=== PATIENT | male | born 1950 | race Caucasian/White ===

== ENCOUNTER 2022-12-03 12:36 | Emergency (ER) | payer MEDICARE, BC, SELFPAY ==
[2022-12-03] VITALS (20 sets, daily range): BP systolic 120–156; BP diastolic 74–90; PULSE 57–82; RESP 15–31; TEMP 36.5; O2SAT 96–100; BMI 23.7
--- NOTE | 2022-12-03 12:39 | DI.RAD.S_ITS ---
PROCEDURE: XR CHEST 1V INDICATIONS: Possible stroke TECHNIQUE: One view of the chest was acquired. COMPARISON: None. FINDINGS: Surgical changes and devices: None. Lungs and pleura: Lungs are clear. No pleural effusions or pneumothorax. Mediastinum: Mediastinal contours appear normal. Heart size is normal. Bones and chest wall: No suspicious bony lesions. Overlying soft tissues appear unremarkable. IMPRESSION: Normal for age, source of current stroke symptoms is not seen. No sign of aspiration. Dictated by: Aron Ruiz M.D. on 12/03/2022 at 13:02 Approved by: Aron Ruiz M.D. on 12/03/2022 at 13:02
--- NOTE | 2022-12-03 12:40 | DI.CT.S_ITS ---
PROCEDURE: CT ANGIO HEAD AND NECK INDICATIONS: TIA workup,not TPA candidate TECHNIQUE: Pre-contrast 4.5 mm thick sections acquired from the foramen magnum to the vertex. After the administration of intravenous contrast, 1 mm thick sections acquired from the aortic arch through the [place]. Post-contrast 4.5 mm thick sections then re-acquired from the foramen magnum to the vertex. 3-dimensional zjgvzdg-ztckgpqus-yfhaonaijc (MIP) and/or volume rendering reformats were acquired of the central intracranial vasculature and neck separately. For radiation dose reduction, the following was used: automated exposure control, adjustment of mA and/or kV according to patient size. COMPARISON: None. FINDINGS: Image quality: Excellent. BRAIN: CSF spaces: Ventricles are normal in size and shape. Basal cisterns are patent. No extra-axial fluid collections. Brain: No midline shift. No intracranial bleeds or masses. Nicole-white matter interface appears intact. Skull and face: Calvarium and facial bones appear intact, without suspicious lesions. Orbits appear normal. Sinuses: Sinuses and mastoids are clear. HEAD CT ANGIOGRAPHY: Anterior circulation: Intracranial internal carotid arteries are normal in size and flow. The flow within the paired anterior cerebral arteries is normal and symmetric. The flow within the middle cerebral arteries is normal and symmetric. The anterior communicating artery is seen. No aneurysms are seen. Posterior circulation: Visualized portions of the vertebral arteries demonstrate normal caliber, and join to form a normal appearing basilar artery. Flow within the posterior cerebral arteries is normal and symmetric. No aneurysms are seen. NECK CT ANGIOGRAPHY: Carotid system: The great vessels demonstrate a conventional anatomy as they arise from the aortic arch. The origins of the common carotid arteries appear patent. The common carotid arteries demonstrate normal caliber and courses. The bifurcation regions are both widely patent. The internal carotid arteries demonstrate normal calibers and courses. Posterior circulation: The origins of the vertebral arteries both appear widely patent. The more superior extracranial portions of both vertebral arteries also demonstrate normal courses and calibers. They join to form a normal appearing basilar artery. Soft tissues: Visualized neck soft tissues demonstrate no suspicious abnormalities. Bones: No suspicious bony lesions. Visualized cervical spine appears normally aligned. IMPRESSION: Normal for age, no evidence of embolic disease or significant atherosclerotic stenosis. Source of current symptoms is not found. Any quantitative measurements of stenosis were performed using NASCET criteria. Dictated by: Aron Ruiz M.D. on 12/03/2022 at 13:38 Approved by: Arno Ruiz M.D. on 12/03/2022 at 13:42
[2022-12-03 12:57] LABS: Add Manual Diff / Slide Review NO; Basophils Absolute Auto 100 /uL (0-100); Eosinophils Absolute Auto 100 /uL (0-450); Eosinophils Percent Auto 1.6 % (2-4); Hematocrit 44.8 % (41-53); Hemoglobin 15.4 g/dL (13.5-17.5); Lymphocytes Absolute Auto 1400 /uL (1100-4500); Lymphocytes Percent Auto 26.8 % (25-40); Mean Corpuscular HGB Conc 34.4 % (30-36); Mean Corpuscular Hemoglobin 30.4 PG (26-34); Mean Corpuscular Volume 88.5 fL (80-100); Monocytes Absolute Auto 500 /uL (0-900); Monocytes Percent Auto 9.9 % (3-14); Neutrophils Absolute Auto 3200 /uL (1500-7000); Neutrophils Percent Auto 60.7 % (50-75); Platelet Count 123 X10^3/uL (150-400); Red Blood Cell Count 5.06 X10^6/uL (4.5-5.9); Red Cell Distribution Width 13.9 % (11.6-14.8); White Blood Cell Count 5.3 X10^3/uL (4.5-11.0)
[2022-12-03 13:03] LABS: Prothrombin Time 11.6 SECONDS (10.1-12.7)
[2022-12-03 13:05] LABS: PTT Partial Thromboplastin Tim 33 SECONDS (26-36)
[2022-12-03 13:06] LABS: Alanine Aminotransferase 22 IU/L (<50); Albumin 4.7 g/dL (3.5-5.0); Albumin Globulin Ratio 1.5 (1.0-2.8); Alkaline Phosphatase 61 U/L (38-126); Aspartate Aminotransferase 28 IU/L (17-59); BUN Creatinine Ratio 23.5 (6-22); Bilirubin Total 0.7 mg/dL (0.2-1.3); Blood Urea Nitrogen 20 mg/dL (9-20); Carbon Dioxide 26 mmol/L (22-32); Chloride 104 mmol/L (98-107); Creatine Kinase 116 U/L (55-170); Estimated Glomerular Filt Rate > 60 mL/min (>60); Globulin 3.2 g/dL (1.7-4.1); Glucose 94 mg/dL (80-110); HEMOLYSIS 24 (0-50); Magnesium 2.1 mg/dL (1.6-2.3); Potassium 4.2 mmol/L (3.4-5.1); Sodium 139 mmol/L (137-145); Total Protein 7.9 g/dL (6.3-8.2)
[2022-12-03 13:18] LABS: Troponin I < 0.012 ng/mL (0.01-0.034)
[2022-12-03 13:22] LABS: CKMB % Relative Index 1.2 % (1.5-5.0); Creatine Kinase MB 1.37 ng/mL (<2.37)
--- NOTE | 2022-12-03 15:38 | ED.NEUROSD ---
HPI - Neuro Symptoms/Deficit General Chief Complaint: Neuro Symptoms/Deficit Stated Complaint: sent by Stroke protocol MRI Time Seen by Provider: 12/03/22 13:58 Source: patient Mode of arrival: Ambulatory Limitations: no limitations History of Present Illness HPI Narrative: This is a 72-year-old male with complaint of vision change 10 days ago he states it seem like a nicole blind came down like a shade for about 2 minutes and then resolved. He went to the pneumatic tester mechanic today for regular follow-up and during examination brought this up and states that he was then told to come here for stroke or vascular evaluation. Dr. Rebekah pisano sent the patient here she notes he does have some glaucoma but states that his eye exam does not show a clear cause for his vision change 10 days ago. She has started the patient on timolol twice daily to his left eye for early glaucoma. Patient states he had no other symptoms and has not had any reoccurrence. He denies headache, no new vision changes, no chest pain, no shortness of breath, no nausea or vomiting. No GI or urinary symptoms. He denies numbness, tingling, weakness, facial droop, he denies any gait or movement issues. Patient states he does not take any thinners such as aspirin, Plavix or other anticoagulants. He states no daily medications. He did have his cholesterol checked in August he was told that it was appropriate he did not require medication. He had surgery remotely for pelvic fracture and bilateral wrist fractures after a fall and has had a right foot arch repair in the past. No tobacco, alcohol or illicit. Patient does live in [place]. His primary care is Dr. Gonzalez and sometimes Dr. Seymour through [facility]. He is accompanied by his . On Anticoagulants: No Related Data Allergies Allergy/AdvReac Type Severity Reaction Status Date / Time No Known Drug Allergies Allergy Verified 12/03/22 12:47 Review of Systems Review of Systems ROS Unobtainable: All systems reviewed & are unremarkable except as noted in HPI and below Hematologic/Lymphatic On Anticoagulants: No Patient History Social History Smoking Status: Unknown if ever smoked Smoking Status: Unknown if ever smoked alcohol intake frequency: holidays/special occasions only Substance Use Type: does not use Exam Narrative Exam Narrative: GEN: well nourished, well appearing male, alert and oriented x 3, patient appears to be in mild distress. HEENT: Atraumatic, pupils are equal round reactive to light, extraocular movements are intact, nares are clear. Throat is clear without any exudates, erythema, tonsillar enlargement or uvular deviation, no facial droop. HEART: Regular rate and rhythm without murmur, clicks, rubs. No carotid bruits, pulses are equal in upper and lower extremities LUNGS:Lungs clear to auscultation, no wheezes, rales, crackles, chest moves symmetrically ABD:bowel sounds normal, soft, non-tender, no guarding, rebound, rigidity, no masses noted, no hepatosplenomegaly MSCL: Non-tender, no muscle atrophy, muscles strength 5/5 upper and lower extremities, full range of motion. NEURO:CN 2-12 intact, sensation normal, reflexes 2/4 upper and lower extremities. finger nose finger test normal, heel weir test normal, no dysarthria or aphasia SKIN: No rash, erythema or other skin changes Initial Vital Signs Initial Vital Signs: Vital Signs Temperature 97.7 F 12/03/22 12:42 Pulse Rate 71 12/03/22 12:42 Respiratory Rate 15 12/03/22 12:42 Blood Pressure 156/75 H 12/03/22 12:42 Pulse Oximetry 96 12/03/22 12:42 Oxygen Delivery Method Room Air 12/03/22 12:42 Scores NIH Stroke Scale Level of Conciousness: Alert, keenly responsive Ask month/age: Answers both questions correctly. Open/close eyes, close hand: Performs both tasks correctly Best gaze horizontal: Normal Visual higuera: No visual loss Facial palsy: Normal symetrical movement Left arm drift: No drift for full 10 sec Right arm drift: No drift for full 10 sec Left leg drift: No drift for full 5 sec Right leg drift: No drift for full 5 sec Limb ataxia: Absent Sensory on face/arms/legs: Normal, no sensory loss Best language: No aphasia, normal Dysarthria: Normal Extinction or inattention: No abnormality Total NIH Stroke scale score: 0 Course Orders Ordered: Discontinued Medications Aspirin (Aspirin 81 Mg Chew Tab) 324 mg PO NOW ONE Stop: 12/03/22 16:02 Last Admin: 12/03/22 16:07 Dose: 324 mg Documented By: NR Ondansetron HCl (Ondansetron 4 Mg/2 Ml Inj) 4 mg IV NOW PRN PRN Reason: Nausea And Vomiting Vital Signs Vital signs: Vital Signs - 8 hr 12/03/22 12:42 12/03/22 13:27 12/03/22 13:29 Temperature 97.7 F Pulse Rate 71 66 68 Respiratory Rate 15 18 Blood Pressure 156/75 H Pulse Oximetry 96 100 99 Oxygen Delivery Method Room Air 12/03/22 13:29 12/03/22 13:30 12/03/22 13:40 Temperature Pulse Rate 82 72 Respiratory Rate 28 H 31 H Blood Pressure 143/85 H Pulse Oximetry 98 98 Oxygen Delivery Method 12/03/22 13:40 12/03/22 13:50 12/03/22 13:50 Temperature Pulse Rate 65 Respiratory Rate 21 Blood Pressure 140/90 124/74 Pulse Oximetry 99 Oxygen Delivery Method 12/03/22 14:00 12/03/22 14:00 12/03/22 14:10 Temperature Pulse Rate 60 62 Respiratory Rate 16 15 Blood Pressure 131/78 Pulse Oximetry 99 99 Oxygen Delivery Method 12/03/22 14:10 12/03/22 14:20 12/03/22 14:20 Temperature Pulse Rate 62 Respiratory Rate 18 Blood Pressure 135/81 136/82 Pulse Oximetry 99 Oxygen Delivery Method 12/03/22 14:30 12/03/22 14:30 12/03/22 14:40 Temperature Pulse Rate 60 57 L Respiratory Rate 18 15 Blood Pressure 130/84 Pulse Oximetry 99 99 Oxygen Delivery Method 12/03/22 14:40 12/03/22 14:50 12/03/22 14:50 Temperature Pulse Rate 59 L Respiratory Rate 16 Blood Pressure 145/86 H 120/81 Pulse Oximetry 99 Oxygen Delivery Method 12/03/22 15:00 12/03/22 15:00 12/03/22 15:10 Temperature Pulse Rate 64 66 Respiratory Rate 23 17 Blood Pressure 124/81 Pulse Oximetry 99 99 Oxygen Delivery Method 12/03/22 15:10 12/03/22 15:20 12/03/22 15:20 Temperature Pulse Rate 64 Respiratory Rate 23 Blood Pressure 124/80 129/80 Pulse Oximetry 99 Oxygen Delivery Method 12/03/22 15:30 12/03/22 15:31 12/03/22 15:31 Temperature Pulse Rate 67 68 Respiratory Rate 21 17 Blood Pressure 124/78 Pulse Oximetry 99 98 Oxygen Delivery Method 12/03/22 15:40 12/03/22 15:40 Temperature Pulse Rate 69 Respiratory Rate 20 Blood Pressure 129/86 Pulse Oximetry 99 Oxygen Delivery Method MDM - Neuro Symptoms/Deficit Lab Data 12/03/22 12:45 12/03/22 12:45 Labs: Lab Results 12/03/22 12/03/22 12/03/22 Range/Units 12:45 12:45 12:45 WBC 5.3 (4.5-11.0) X10^3/uL RBC 5.06 (4.5-5.9) X10^6/uL Hgb 15.4 (13.5-17.5) g/dL Hct 44.8 (41-53) % MCV 88.5 (80-100) fL MCH 30.4 (26-34) PG MCHC 34.4 (30-36) % RDW 13.9 (11.6-14.8) % Plt Count 123 L (150-400) X10^3/uL Neut % (Auto) 60.7 (50-75) % Lymph % (Auto) 26.8 (25-40) % [place] % (Auto) 9.9 (3-14) % Eos % (Auto) 1.6 L (2-4) % Baso % (Auto) 1.0 (0-2) % Neut # (Auto) 3200 (1109-2747) /uL Lymph # (Auto) 1400 (6726-1896) /uL [place] # (Auto) 500 (0-900) /uL Eos # (Auto) 100 (0-450) /uL Baso # (Auto) 100 (0-100) /uL PT 11.6 (10.1-12.7) SECONDS INR 1.0 (0.9-1.3) APTT 33 (26-36) SECONDS Sodium 139 (137-145) mmol/L Potassium 4.2 (3.4-5.1) mmol/L Chloride 104 (98-107) mmol/L Carbon Dioxide 26 (22-32) mmol/L BUN 20 (9-20) mg/dL Creatinine 0.85 (0.66-1.25) mg/dL Estimated GFR > 60 (>60) mL/min BUN/Creatinine Ratio 23.5 H (6-22) Glucose 94 (80-110) mg/dL Calcium 9.0 (8.4-10.2) mg/dL Magnesium 2.1 (1.6-2.3) mg/dL Total Bilirubin 0.7 (0.2-1.3) mg/dL AST 28 (17-59) IU/L ALT 22 (<50) IU/L Alkaline Phosphatase 61 (38-126) U/L Total Creatine Kinase 116 (55-170) U/L CK-MB (CK-2) 1.37 (<2.37) ng/mL CK-MB (CK-2) Rel Index 1.2 L (1.5-5.0) % Troponin I < 0.012 (0.01-0.034) ng/mL Total Protein 7.9 (6.3-8.2) g/dL Albumin 4.7 (3.5-5.0) g/dL Globulin 3.2 (1.7-4.1) g/dL Albumin/Globulin Ratio 1.5 (1.0-2.8) Imaging Data CTA - brain/neck: Radiologist's Impression: Gallo Rainey??72??M??1950 ? Allergy/Adv: No Known Drug Allergies Close Head/Neck CTA (Signed) Aron Ruiz - 12/03/22 Chest X-Ray (Signed) Aron Ruiz - 12/03/22 Launch?[place] [address] CT Scan Report Signed Patient: Gallo Rainey MR#: [id number] : 1950 Acct:[id number] Age/Sex: 72 / M Date of Service: 12/03/22 Loc: Accession Number: [id number] ?? Procedure: CT angio head and neck Ordering Provider: Monica Davis D.O. PROCEDURE:? CT ANGIO HEAD AND NECK ? INDICATIONS:? TIA workup,not TPA candidate ? TECHNIQUE:? Pre-contrast 4.5 mm thick sections acquired from the foramen magnum to the vertex.? After the administration of intravenous contrast, 1 mm thick sections acquired from the aortic arch through the [place].? Post-contrast 4.5 mm thick sections then re-acquired from the foramen magnum to the vertex.? 3-dimensional boczohf-eusuikrkv-trwxwbqcwg (MIP) and/or volume rendering reformats were acquired of the central intracranial vasculature and neck separately. For radiation dose reduction, the following was used:? automated exposure control, adjustment of mA and/or kV according to patient size.? ? COMPARISON:? None. ? FINDINGS:? Image quality:? Excellent.? ? BRAIN:? CSF spaces:? Ventricles are normal in size and shape.? Basal cisterns are patent.? No extra-axial fluid collections.? ? Brain:? No midline shift.? No intracranial bleeds or masses.? Nicole-white matter interface appears intact.? ? Skull and face:? Calvarium and facial bones appear intact, without suspicious lesions.? Orbits appear normal.? ? Sinuses:? Sinuses and mastoids are clear.? ? HEAD CT ANGIOGRAPHY:? Anterior circulation:? Intracranial internal carotid arteries are normal in size and flow.? The flow within the paired anterior cerebral arteries is normal and symmetric.? The flow within the middle cerebral arteries is normal and symmetric.? The anterior communicating artery is seen.? No aneurysms are seen.? ? Posterior circulation:? Visualized portions of the vertebral arteries demonstrate normal caliber, and join to form a normal appearing basilar artery.? Flow within the posterior cerebral arteries is normal and symmetric.? No aneurysms are seen.? ? NECK CT ANGIOGRAPHY:? Carotid system:? The great vessels demonstrate a conventional anatomy as they arise from the aortic arch.? The origins of the common carotid arteries appear patent.? The common carotid arteries demonstrate normal caliber and courses.? The bifurcation regions are both widely patent.? The internal carotid arteries demonstrate normal calibers and courses.? ? Posterior circulation:? The origins of the vertebral arteries both appear widely patent.? The more superior extracranial portions of both vertebral arteries also demonstrate normal courses and calibers.? They join to form a normal appearing basilar artery.? ? Soft tissues:? Visualized neck soft tissues demonstrate no suspicious abnormalities.? ? Bones:? No suspicious bony lesions.? Visualized cervical spine appears normally aligned.? IMPRESSION:? Normal for age, no evidence of embolic disease or significant atherosclerotic stenosis.? Source of current symptoms is not found. ? Any quantitative measurements of stenosis were performed using NASCET criteria.? ? ? Dictated by: Aron Ruiz M.D. on 12/03/2022 at 13:38 ? ? Approved by: Aron Ruiz M.D. on 12/03/2022 at 13:42?? ECG Data Attestation: I personally reviewed and interpreted this ECG as follows: Prior ECG tracings: not available for review Interpretation: Sinus rhythm rate of 64 IA 148 QRS of [address]TC [address]. No acute [address] elevation or depression. No priors. MDM Narrative Medical decision making narrative: This is a 72-year-old male who comes emergency department for complaint of like a curtain coming down over his vision his eye 10 days ago. He went to the pneumatic tester mechanic for regular glaucoma check they do appreciate glaucoma in his left eye and started him on medications. Patient was not felt to have clear cause of his vision change and was sent to the ER for vascular/stroke workup. Patient's, EKG and head and neck CT angio do not show significant carotid disease or changes. He is in sinus rhythm. Has slight thrombocytopenia but no other significant changes to workup. He is not anticoagulated. He did have his cholesterol checked as an outpatient was told it was normal. Patient's chart was reviewed from Dr. Pisano. His NIH is 0. Discussed that she is worried about occlusive disease to the blood vessel to his eye which is a type of stroke. Discussed with patient I would recommend an aspirin every day, talk with his about physician about whether to start a statin. He is reluctant to start 1 now and have further workup including echo, Holter monitor, stroke workup as an outpatient. Discharge Plan Departure Patient Disposition: Home Clinical Impression: Alteration in vision Instructions: DI for Transient Ischemic Attack Activity Restrictions/Additional Instructions: Dr. Pisano sent you today for a vascular or stroke workup, she was concerned that your vision change 10 days ago could be related. The CT angio of her head and neck does not show any significant changes to the blood vessels today. Your labs shows slightly low platelet count. I would recommend an aspirin 81 mg daily, ask your physician if you should be on a statin for preventive measures. Please follow-up with your physician for a Holter monitor and ECHO. Please return for recurrent episodes of vision loss, severe headaches, new numbness, tingling weakness, difficulty with speech, facial droop or other new or concerning changes. Referrals: Oswaldo Gonzalez MD [Primary Care Provider] - Stand Alone Forms: Patient Portal/API
--- NOTE | 2022-12-03 15:55 | PC.NURSE ---
pt sent by eye dr for stroke work up. Patient states last tuesday, 11 days ago, he felt like his vision went funny. like a curtain was coming down over his eyes.
[2022-12-03] MEDS: ASPIRIN 81 MG CHEW TAB 324 MG PO (16:07)
== END 2022-12-03 16:11 | disposition home or self-care (01) ==
PROVIDERS: Emergency Provider Emergency Medicine; PCP Family Medicine
DX: H54.7 Unspecified visual loss (principal); R29.818 Other symptoms and signs involving the nervous system
CPT/HCPCS: 36415; 70496; 70498; 71045; 80053; 82550; 82553; 83735; 84484; 85025; 85610; 85730; 93005; 93010; 99284; Q9967